=== PATIENT | female | born 1945 | race Caucasian/White ===

== ENCOUNTER 2017-08-10 02:55 | Emergency (ER) | payer MEDICARE ==
[~2017-08-10] VITALS: Ht 165.1 cm; Wt 72.0 kg
[2017-08-10 02:55] VITALS: BP 159/75; PULSE 83; RESP 20; TEMP 98.4; O2SAT 98
[~2017-08-10 02:55] MED LIST: AZIT250T74 PO; NIAS10004 PO
[2017-08-10] MEDS ORDERED: predniSONE 20 MG TAB PO ONE (03:15)
--- NOTE | 2017-08-10 03:26 | PD ---
HPI Chief Complaint: Cold / Flu Symptoms Time Seen by Provider: 03:02 Travel History International Travel<30 days: No Contact w/Intl Traveler<30days: No Traveled to known affect area: No History of Present Illness HPI 72-year-old white female presents to emergency department with complaints of cough, shortness of breath or wheezing. She states that she has had similar episodes in the past when she has had pneumonia. She states that she had just flown from [place] to [place] in the last 2 days. She states that before getting onto the plane she felt that she had any inhalation of jet fuel. She states that this had caused her to start coughing. During the trip down to [place] she states her symptoms have worsened. She has had subjective fever and chills, chest congestion, pleuritic left-sided chest pain, shortness breath or wheezing. She states that she's never had asthma or COPD in the past. This is typical of her when she gets these colds and chest infections. She denies any viral symptoms. She states that she does not believe that she has a virus. She denies any myalgias, arthralgias, nausea, vomiting, diarrhea, urinary symptoms or abdominal pain. Symptoms are moderate. Worse with coughing. No alleviating factors. PFSH Past Medical History Narrative Medical Benign pituitary tumor, pneumonia Blood Disorders: Yes (NEUTROPENIA) Cancer: Yes (NEUTROPENIA) High Cholesterol: Yes Integumentary: Yes (SHINGLES) Immunizations Current: Yes Tetanus Vaccination: < 5 Years Influenza Vaccination: No Menopausal: Yes Past Surgical History Narrative Surgical Partial colectomy, removal of pituitary adenoma, tonsillectomy Abdominal Surgery: Yes (COLON RESECTION 07/09) Tonsillectomy: Yes Other Surgery: Yes Social History Alcohol Use: Yes (occ) Tobacco Use: No Substance Use: No Allergies-Medications (Allergen,Severity, Reaction): Coded Allergies: Sulfa (Sulfonamide Antibiotics) (Unverified Allergy, Severe, 08/10/17) acetaminophen (Unverified Allergy, Severe, 08/10/17) hydrocodone (Unverified Allergy, Severe, 08/10/17) lovastatin (Unverified Allergy, Severe, 08/10/17) penicillin G (Unverified Allergy, Severe, Rash, 08/10/17) Reported Meds & Prescriptions Reported Meds & Active Scripts Active Zithromax Z-Chele (Azithromycin) 250 Mg Dspk 250 Mg PO DIRECTED 500 MG (2 tabs) day 1, then 1 tab days 2-5. Proventil Hfa 6.7 GM Inh (Albuterol Sulfate) 90 Mcg/Act Aer 2 Puff INH Q4-6H PRN Deltasone (Prednisone) 20 Mg Tab 20 Mg PO BID Review of Systems Except as stated in HPI: all other systems reviewed are Neg Physical Exam Narrative GENERAL: Well-developed, well-nourished in no acute distress. Nontoxic appearing. HEAD: Normocephalic, atraumatic. EYES: Pupils equal round and reactive. Extraocular motions intact. No scleral icterus. No injection or drainage. ENT: TMs clear without erythema. The external auditory canals clear. Nose: clear . Posterior pharynx is pink and moist. No tonsillar edema or exudate. Uvula midline. Airway patent. NECK: Trachea midline.Supple, nontender, moves head freely. No central bony tenderness or spasm. CARDIOVASCULAR: Regular rate and rhythm without murmurs, gallops, or rubs. RESPIRATORY: Scattered rhonchi with few expiratory wheezes. No Rales. GASTROINTESTINAL: Abdomen soft, non-tender, nondistended. No hepato-splenomegaly , or palpable masses. No guarding. EXTREMITIES: No clubbing, cyanosis, or edema. No joint tenderness, effusion, or edema noted. BACK: Nontender without deformity or crepitance. No flank tenderness. Data Data Last Documented VS Vital Signs Date Time Temp Pulse Resp B/P (MAP) Pulse Ox O2 Delivery O2 Flow Rate FiO2 08/10/17 02:55 98.4 83 20 159/75 (103) 98 Room Air Orders Orders Chest, Single Ap (08/10/17 03:07) Prednisone (Deltasone) (08/10/17 03:15) Albuterol-Ipratropium Neb (Duoneb Neb) (08/10/17 03:15) Azithromycin (Zithromax) (08/10/17 03:30) Benzonatate (Tessalon) (08/10/17 03:30) MDM Medical Decision Making Medical Screen Exam Complete: Yes Emergency Medical Condition: Yes Medical Record Reviewed: Yes Interpretation(s) Chest x-ray: Negative for acute infiltrate Differential Diagnosis MDM: High Differential diagnoses: Pneumonia, bronchitis, URI, asthma, RAD, legionnaire's disease, SARS, ARDS, influenza, bronchiolitis, RSV,PE,CHF Narrative Course Patient is given 2 DuoNeb abscess, prednisone 60 mg, Zithromax 500 mg and 2 Tessalon Perles by mouth. X-ray of the chest is negative for infiltrate. The patient is feeling subjectively better. She has good air movement. Patient looks well and is stable for discharge. This is bronchitis, reactive airway disease Diagnosis Primary Impression: bronchitis Additional Impression: reactive airway disease Patient Instructions: General Instructions Additional Instructions: Rest. Increase fluids. Tylenol and Advil. Robitussin-DM. Zithromax, prednisone, and albuterol. Followup with your Dr. in one week. Return to the ER for any problems. Med/Other Pt SpecificInfo: Prescription(s) given Scripts Azithromycin (Zithromax Z-Chele) 250 Mg Dspk 250 MG PO DIRECTED for Infection, #1 DSPK 0 Refills 500 MG (2 tabs) day 1, then 1 tab days 2-5. Prov: Ulises Peralta MD 08/10/17 Albuterol 6.7 GM Inh (Proventil Hfa 6.7 GM Inh) 90 Mcg/Act Aer 2 PUFF INH Q4-6H Y for SHORTNESS OF BREATH, #1 INHALER 0 Refills Prov: Ulises Peralta MD 08/10/17 Prednisone (Deltasone) 20 Mg Tab 20 MG PO BID, #10 TAB 0 Refills Prov: Ulises Peralta MD 08/10/17 Disposition: 01 DISCHARGE HOME Condition: Stable Last Lundberg Aug 10, 2017 03:26
[2017-08-10] MEDS ORDERED: ZITHTAB PO (03:27)
[2017-08-10] MEDS ORDERED: ALBU6.7H INH (03:27)
[2017-08-10] MEDS ORDERED: PRED-503 PO (03:27)
[2017-08-10] MEDS: RESP: ALBUTEROL 2.5 MG/IPRATROPIUM 0.5 MG NEB (SCH) INH (03:30)
[2017-08-10] MEDS ORDERED: AZITHROMYCIN 250 MG TAB PO ONE (03:30)
[2017-08-10] MEDS ORDERED: BENZONATATE 100 MG CAP PO ONE (03:30)
--- NOTE | 2017-08-10 03:31 | RADRPT ---
EXAM DATE/TIME: 08/10/2017 03:17 [facility] COMPARISON: No previous studies available for comparison. INDICATIONS : Patient complains pf cough, congestion, shortness of breath, and left sided chest pain. MEDICAL HISTORY : None. SURGICAL HISTORY : Right breast, lumpectomy. ENCOUNTER: Initial ACUITY: 4 - 6 days PAIN SCORE: 5/10 LOCATION: chest FINDINGS: A single view of the chest demonstrates the lungs to be symmetrically aerated without evidence of mas s, infiltrate or effusion. The cardiomediastinal contours are unremarkable. Osseous structures are intact. CONCLUSION: No acute disease. Isra Chappell MD on August 10, 2017 at 3:28 Board Certified Radiologist. This report was verified electronically.
== END 2017-08-10 04:06 | disposition home or self-care (01) ==
LOC: NEPD 02:55
DX: J45.909 Unspecified asthma, uncomplicated (principal)
CPT/HCPCS: 71045; 94640; 94664; 99284; J7512